=== PATIENT | female | born 1970 | race Caucasian/White ===

== ENCOUNTER 2018-06-08 08:20 | Emergency (ER) | payer SELFPAY ==
[~2018-06-08] VITALS: Wt 118.8 kg
[~2018-06-08 08:20] MED LIST: CLINDAMYCIN HC300 MG PO; FLEXERIL5 MG PO; LIPITOR20 MG PO; LISINOPRIL5 MG PO; LOMOTIL 0.025 M1 TAB PO; METOPROLOL SR50 MG PO; OMEPRAZOLE40 MG PO; PREDNICOT20 MG PO; PREDNISONE20 MG PO; PROZAC40 MG PO; TRAMADOL HCL50 MG PO; VICODIN 5/500 505 MG PO; ZITHROMAX Z PA250 MG PO; ZOFRAN ODT8 MG PO
[2018-06-08 08:23] VITALS: BP 162/108
[2018-06-08] MEDS ORDERED: WELLBUTRIN SR100 MG PO (08:57)
[2018-06-08 09:03] LABS: BASO # 0.1 10*3/uL (0.0-0.1); BASO % 0.6 % (0.0-1.0); EOS # 0.2 10*3/uL (0.0-0.4); EOS % 1.9 % (1.0-4.0); HEMOGLOBIN 15.9 g/dl (12.0-16.0); LYMPH # 1.8 10*3/uL (1.3-4.4); MEAN CELL VOLUME 94.2 fl (81.0-99.0); MEAN CORPUSCULAR HGB 31.9 pg (27.0-31.0); MEAN CORPUSCULAR HGB CONC 33.8 g/dl (33.0-37.0); MONO # 0.6 10*3/uL (0.1-1.0); MONO % 7.2 % (3.0-9.0); NEUT % 68.7 % (47.0-73.0); PLATELET COUNT AUTOMATED 242 10*3/uL (130-400); RED BLOOD COUNT 4.99 10*6/uL (4.10-5.10); RED CELL DISTRI WIDTH 13.9 % (0-14.5); WHITE BLOOD COUNT 8.8 10*3/uL (4.8-10.8)
[2018-06-08 09:07] LABS: BILIRUBIN NEGATIVE (NEGATIVE); BLOOD NEGATIVE (NEGATIVE); CLARITY SL CLOUDY (CLEAR); COLOR YELLOW (YELLOW); GLUCOSE NEGATIVE (NEGATIVE); KETONE NEGATIVE (NEGATIVE); LEUKO ESTERASE NEGATIVE (NEGATIVE); NITRITE NEGATIVE (NEGATIVE); UROBILINOGEN 0.2 E.U./dl (0.2-1.0)
[2018-06-08 09:19] LABS: ALBUMIN 3.8 gm/dl (3.1-4.5); ALKALINE PHOSPHATASE 56 U/L (45-117); BUN 11 mg/dl (7-24); CHLORIDE 111 mmol/L (98-107); CREATININE 0.86 mg/dL (0.55-1.02); LIPASE 159 U/L (73-393); POTASSIUM 4.2 mmol/L (3.5-5.1); SGOT/AST 19 IU/L (3-35); SGPT/ALT 26 U/L (12-78); SODIUM 140 mmol/L (136-145); TOTAL PROTEIN 7.7 gm/dL (6.4-8.2)
[2018-06-08 09:22] LABS: BETA-HCG, QUANT < 1.0 mIU/mL (1-3)
[2018-06-08 09:23] LABS: BACTERIA 3+; EPITHELIAL CELLS TNTC
== END 2018-06-08 10:09 | disposition home or self-care (01) ==
LOC: ED 08:20
PROVIDERS: Emergency Medicine
DX: K80.50 Calculus of bile duct without cholangitis or cholecystitis without obstruction (principal); I10 Essential (primary) hypertension; K21.9 Gastro-esophageal reflux disease without esophagitis; Z88.0 Allergy status to penicillin; Z79.899 Other long term (current) drug therapy

== ENCOUNTER 2019-03-22 18:49 | Emergency (ER) | payer OTHER ==
[~2019-03-22] VITALS: Ht 165.1 cm; Wt 120.2 kg
[~2019-03-22 18:49] MED LIST changes: +WELLBUTRIN SR100 MG PO
[2019-03-22 18:50] VITALS: BP 197/107
[2019-03-22] MEDS ORDERED: CLINDAMYCIN HC300 MG PO (20:05)
== END 2019-03-22 20:10 | disposition home or self-care (01) ==
LOC: ED 18:49
DX: S62.525B Nondisplaced fracture of distal phalanx of left thumb, initial encounter for open fracture (principal); K21.9 Gastro-esophageal reflux disease without esophagitis; I10 Essential (primary) hypertension; Z23 Encounter for immunization; Z88.0 Allergy status to penicillin; Z79.899 Other long term (current) drug therapy; W31.89XA Contact with other specified machinery, initial encounter; Y93.89 Activity, other specified; Y92.89 Other specified places as the place of occurrence of the external cause; Y99.8 Other external cause status

== ENCOUNTER → 2022-12-12 | Outpatient (CLI) | payer OTHER ==
[2022-12-12 11:35] LABS: BASO # 0.1 10*3/uL (0.0-0.1); BASO % 0.6 % (0.0-1.0); EOS # 0.2 10*3/uL (0.0-0.4); EOS % 2.3 % (1.0-4.0); HEMATOCRIT 38.7 % (37.0-47.0); LYMPH # 2.6 10*3/uL (1.3-4.4); MEAN CELL VOLUME 84.1 fl (81.0-99.0); MEAN CORPUSCULAR HGB 26.3 pg (27.0-31.0); MEAN CORPUSCULAR HGB CONC 31.3 g/dl (33.0-37.0); MEAN PLATELET VOLUME 10.2 fl (9.6-12.3); MONO # 0.6 10*3/uL (0.1-1.0); MONO % 7.8 % (3.0-9.0); NEUT # 4.5 10*3/uL (2.3-7.9); NEUT % 56.7 % (47.0-73.0); PLATELET COUNT AUTOMATED 319 10*3/uL (130-400); RED CELL DISTRI WIDTH 17.3 % (0-14.5)
[2022-12-12 11:57] LABS: BILIRUBIN Negative (Negative); BLOOD Negative (Negative); CLARITY Cloudy (Clear); COLOR Yellow (Yellow); GLUCOSE Negative (Negative); KETONE Negative (Negative); LEUKO ESTERASE Negative (Negative); NITRITE Negative (Negative); PH 7.5 (4.5-8.0); SPECIFIC GRAVITY 1.025 (1.001-1.030)
[2022-12-12 12:16] LABS: BACTERIA 4+; EPITHELIAL CELLS 31-40
[2022-12-12 12:17] LABS: ALKALINE PHOSPHATASE 53 U/L (46-116); BUN 9 mg/dl (9-23); CHLORIDE 104 mmol/L (98-107); CHOLESTEROL 265 mg/dL (<200); LDL CHOLESTEROL 164 mg/dL (9-159); SGPT/ALT 15 U/L (10-49); TOTAL PROTEIN 6.9 gm/dL (6.0-8.0); TRIGLYCERIDES 277 mg/dl (<150); VITAMIN D, 25-HYDROXY 28.7 ng/mL (30-100)
== END | disposition home or self-care (01) ==
LOC: LAB 11:00
PROVIDERS: ATTEND Family Medicine
DX: I10 Essential (primary) hypertension (principal); K91.2 Postsurgical malabsorption, not elsewhere classified

== ENCOUNTER 2024-07-26 11:07 | Emergency (ER) | payer SELFPAY ==
[~2024-07-26] VITALS: Ht 162.5 cm; Wt 107.5 kg
[2024-07-26 11:52] VITALS: BP 142/89
[2024-07-26] MEDS ORDERED: Ketorolac Tromethamine 30 MG/ML VIAL IM ONE (12:55)
== END 2024-07-26 14:16 | disposition home or self-care (01) ==
LOC: ED 11:07
DX: S93.401A Sprain of unspecified ligament of right ankle, initial encounter (principal); M25.572 Pain in left ankle and joints of left foot; K21.9 Gastro-esophageal reflux disease without esophagitis; I10 Essential (primary) hypertension; F32.A Depression, unspecified; Z90.49 Acquired absence of other specified parts of digestive tract; Z88.0 Allergy status to penicillin; Z98.890 Other specified postprocedural states; X50.1XXA Overexertion from prolonged static or awkward postures, initial encounter; Y93.01 Activity, walking, marching and hiking; Y92.89 Other specified places as the place of occurrence of the external cause; Y99.8 Other external cause status